=== PATIENT | female | born 1940 | race Caucasian/White ===

== ENCOUNTER 2016-08-11 22:04 | Inpatient (IN) | payer MEDICARE, OTHER ==
--- NOTE | ~2016-08-11 | DS ---
Discharge Summary [facility] [address] [facility]. [address] NAME: YE STEINBERG : 42 STATUS : DIS IN PAT#: [id number] AGE: 76 ADM/REG DATE : 08/11/16 MR#: [id number] REPORT SERV DATE: 08/18/16 DICTATED BY: YOUSIF WILCOX DATE: 08/17/16 REPORT STATUS : Draft TRANSCRIBED BY: MODL DATE: 08/17/16 ADMISSION DATE: 08/11/2016 DISCHARGE DATE: 08/17/2016 FINAL DIAGNOSES: 1. Morganella morganii urinary tract infection. 2. Left flank pain, likely muscular. 3. Chronic abdominal pain with irritable bowel, diarrhea-type. 4. Emphysema, chronic obstructive pulmonary disease. 5. Hypertension. 6. History of lung carcinoma with right lower lung lobectomy. 7. History of breast cancer with right mastectomy. DIAGNOSTIC EXAMS: CT kidney stone protocol showing both kidneys are of normal size and configuration, 2 mm nonobstructing left lower pole kidney stone. The patient does not have ureteral stones, bladder stones, or hydronephrosis. No bowel obstruction or bowel wall inflammation. There is some retained stool throughout the colon. Chest x-ray showing no acute cardiopulmonary abnormality. HOSPITAL COURSE: Please refer to the H and P done by Dr. Bautista, dated on 08/11/2016. Briefly, this is a 76-year-old female who was transferred from [facility] for antibiotic resistant UTI. The patient has a history of hypertension, chronic pain, and chronic narcotics. She started having some back and left flank pain and nausea. The patient went to [facility], was diagnosed with UTI, and was prescribed an unknown oral antibiotic. She did not fill it as it is so expensive, and she started having increasing nausea and vomiting. The patient went back to the emergency room as she was contacted because the cultures done on a previous day showed a resistant Morganella morganii. The patient was seen again. They got a white count of 9.[address] showed nonobstructing nephrolithiasis. Lactic acids are normal. The patient was then transferred here where she was given the initial diagnosis of left pyelonephritis; however, the patient never had a fever since she got here. We continued the aztreonam basing from the cultures from [place], and we did our own culture here, and the urinalysis is unremarkable, and the cultures are negative. We did our kidney stone protocol here and it was similar to the previous one without any hydronephrosis or obstructing stone. Meanwhile, the patient continues to complain of this back pain. On physical exam, it seems to be more of muscular. With the CAT scan findings, no fever, clearing urine, no positive cultures, and a white count that only peaked at 11.5 once and everything is normal, I highly doubt that this is a pyelonephritis. The patient most likely has a UTI which is already treated and having this chronic pain, and she is already on narcotics. I added some Flexeril on her, and we will discharge the patient today. The patient was told about this, and she agreed with the plan. She will be following up with the PCP, Iftikhar Macedo. DISCHARGE MEDICATIONS: She will be on the following medications: Flonase 1 spray both nostrils, Singulair 10 mg a day, Prilosec 40 mg a day, Desyrel 50 mg at bedtime, Roxicodone 15 mg four times a day p.r.n., and I will give her a prescription for Flexeril 5 mg p.o. t.i.d. Discharge Summary [address] [address] NAME: YE STEINBERG : 42 STATUS : DIS IN PAT#: [id number] AGE: 76 ADM/REG DATE : 08/11/16 MR#: [id number] REPORT SERV DATE: 08/18/16 DICTATED BY: YOUSIF WILCOX. DATE: 08/17/16 REPORT STATUS : Draft TRANSCRIBED BY: YOON DATE: 08/17/16 This has been explained to her. TIME SPENT: 35 minutes. SEBASTIEN/YOON Yousif Wilcox M.D. / [id number] CC: Iftikhar Macedo M.D.
--- NOTE | ~2016-08-11 | HP ---
History And Physical [place] [address] [facility] [place]. [address] NAME: YE STEINBERG : 42 STATUS : ADM Florencio PAT#: [id number] AGE: 76 ADM/REG DATE : 08/11/16 MR#: [id number] REPORT SERV DATE: 08/12/16 DICTATED BY: TALI ESCALONA DATE: 08/12/16 REPORT STATUS : Draft TRANSCRIBED BY: MODL DATE: 08/12/16 DATE OF ADMISSION: 08/11/2016 POINT OF ENTRY: Transfer from [facility] Emergency Department. PRIMARY CARE PHYSICIAN: Dr. Iftikhar Macedo. CHIEF COMPLAINT: Antibiotic-resistant urinary tract infection. HISTORY OF PRESENT ILLNESS: Ms. Steinberg is a 76-year-old female with a history of hypertension, asthma, osteoarthritis as well as lung and breast cancer who is being transferred from [facility] Emergency Department for antibiotic-resistant urinary tract infection. The patient states that she first started to develop some left flank and back pain as well as nausea on Saturday evening. She was seen at [facility] Emergency Department on Saturday and diagnosed urinary tract infection and prescribed an unknown oral antibiotic. The patient states that she tried to fill at the pharmacy, but it was so expensive she did not fill it. She states that she has subsequently developed worsening nausea, vomiting as well as persistent left flank and back pain. Also endorses some fevers as high as 102 degrees Fahrenheit at home today. The patient was contacted by the staff at [facility] today as the urine culture resulted as Morganella morganii that was resistant to multiple antibiotics. Initial evaluation today at [facility] notable for white count of 9.2. Remainder of her labs were unremarkable. She was complaining of severe abdominal pain, therefore CT of the abdomen and pelvis was undertaken, which showed a small hiatal hernia as well as left sided nonobstructing nephrolithiasis. Lactic acid within normal limits. She was very hypertensive, which was treated with some IV Cardizem as well as pain control. She was subsequently transferred to [facility] for higher level of care. She denies any night sweats, chills, chest pain, palpitations, shortness of breath, diarrhea, constipation, melena, hematochezia, or hemoptysis. She denies any dysuria, but does endorse some urinary odor as well as frequency. COMPREHENSIVE REVIEW OF SYSTEMS: Otherwise negative unless listed in history of present illness now. PREVIOUS MEDICAL HISTORY: 1. History of lung cancer, status post right upper lobe lobectomy. 2. Breast cancer, status post right mastectomy. 3. Hypertension. 4. Asthma. 5. Osteoarthritis. 6. Gastroesophageal reflux disease. History And Physical [address] [address] NAME: YE STEINBERG : 42 STATUS : ADM Florencio PAT#: [id number] AGE: 76 ADM/REG DATE : 08/11/16 MR#: [id number] REPORT SERV DATE: 08/12/16 DICTATED BY: TALI ESCALONA DATE: 08/12/16 REPORT STATUS : Draft TRANSCRIBED BY: YOON DATE: 08/12/16 SURGICAL HISTORY: 1. Right mastectomy. 2. Right upper lobe lobectomy. 3. Bilateral TKA. 4. Cervical diskectomy. 5. Abdominal hysterectomy. 6. Cataract surgery. ALLERGIES: THESE ARE YET TO BE CONFIRMED BY PHARMACY, BUT IN OUR SYSTEM INCLUDE STADOL, TORADOL, IMITREX, IV CONTRAST, NSAIDS, PENICILLINS, MORPHINE, CODEINE, ASPIRIN, ACETAMINOPHEN, TRAMADOL, AND LATEX. HOME MEDICATIONS: Pending at time dictation. SOCIAL HISTORY: Denies any tobacco, alcohol, or illicits. FAMILY MEDICAL HISTORY: Mother with asthma and leukemia. Father with coronary artery disease. Siblings with history of coronary artery disease. LABS AND IMAGING: All obtained from transfer records from [facility]. 1. White count 9.2, hemoglobin 14.4, hematocrit 42.7, and platelet count is 261. 2. Sodium is 138, potassium 3.6, chloride 101, carbon dioxide 26, BUN 10, creatinine 0.8, glucose is 106, calcium is 10.0, protein 7.4, albumin 4.4, bilirubin 0.4, ALT is 10, AST 14, alkaline phosphatase is 87. 3. Lactic acid 1.4. 4. CT scan of abdomen and pelvis shows a small hiatal hernia as well as nonobstructing left-sided nephrolithiasis. 5. Urine culture from 08/06/2016 shows Morganella morganii that is currently sensitive to gentamicin, tobramycin, ceftazidime, Zosyn, and Azactam. PHYSICAL EXAMINATION: VITAL SIGNS: Temperature is 97.5 degrees Fahrenheit, pulse is 104 respirations 16, saturating 94% on room air, blood pressure 193/95. GENERAL: The patient is awake, alert, in some mild discomfort from her left-sided back and flank pain. She is an elderly, female.. HEENT: Atraumatic, normocephalic. Slightly dry mucous membranes. Pupils were equal, round, reactive to light and accommodation. Extraocular eye movements were intact. No scleral icterus. CARDIAC: Regular rate and rhythm. No murmurs or gallops. Normal S1, S2. LUNGS: Clear to auscultation bilaterally. No wheezes, rhonchi, or crackles. ABDOMEN: Soft. She is somewhat tender to palpation over the left upper and lower quadrant. No rebound, guarding, or rigidity. : She does have some left-sided flank and CVA tenderness on palpation. EXTREMITIES: Warm and perfused. No cyanosis, clubbing, or edema. SKIN: Warm and dry. PSYCH: Affect appropriate. History And Physical [address] [address] NAME: YE STEINBERG : 42 STATUS : ADM Florencio PAT#: [id number] AGE: 76 ADM/REG DATE : 08/11/16 MR#: [id number] REPORT SERV DATE: 08/12/16 DICTATED BY: TALI ESCALONA DATE: 08/12/16 REPORT STATUS : Draft TRANSCRIBED BY: MODKelvin DATE: 08/12/16 NEURO: Alert, oriented x3. Cranial nerves II through XII grossly intact. Speech is normal. Gait not assessed. ASSESSMENT AND PLAN: Ms. Steinberg is a 76-year-old female with a recent diagnosis of antibiotic-resistant urinary tract infection. PROBLEM LIST: 1. Morganella morganii urinary tract infection. 2. Hypertension. 3. Abdominal pain. 4. Left-sided nephrolithiasis. PLAN: 1. Morganella morganii urinary tract infection. We will place the patient on IV Azactam. 2. Hypertension. Continue patient's home medications once confirmed. IV hydralazine p.r.n. for elevated blood pressure. Suspect a lot of this is due to pain, which we will address separately. 3. Abdominal pain. Suspect this is all due to nephrolithiasis as this is located in the left side as well as some flank and CVA tenderness. Otherwise, labs and CT imaging were unremarkable. We will treat with IV fluids as well as some pain control. Continue to monitor. 4. Nephrolithiasis. Treat with IV fluids as well as pain control. Unfortunately, she is allergic to Toradol. 5. DVT prophylaxis. Lovenox subcutaneously. CODE STATUS: The patient wished to be full code. BRIANA/YOON Tali Escalona MD / [id number] CC: Iftikhar Macedo M.D.
[~2016-08-11 22:04] MED LIST: CAT1 PO; CAT2 PO; K500 PO; LOMOTILUDL PO; LONOX2.5 MG PO; LOTE40 PO; NEXIUM40 PO; NORCO1 TAB PO; P20 PO; PHEN50TAB PO; PREV15 PO; PRILOSEC40 MG PO; PROTONIX PO; ROXICODONE15 MG PO; SYMBICORT 160/41 INH INH; VALIUM10 MG PO; VENTOLIN HFA INH
[2016-08-11] MEDS ORDERED: ROXICODONE15 MG PO (23:06)
[2016-08-11] MEDS ORDERED: MACROBID PO (23:07)
[2016-08-11] MEDS ORDERED: TRAZ50 PO (23:08)
[2016-08-11] MEDS ORDERED: FLONASE NAS (23:08)
[2016-08-11] MEDS ORDERED: SINGULAIR1 PO (23:08)
[2016-08-11] MEDS ORDERED: LOM PO (23:10)
[2016-08-11] MEDS ORDERED: PRILOSEC40 MG PO (23:11)
[2016-08-12 09:32] LABS: BASOPHILS 0.3 %; BASOPHILS ABSOLUTE 0.04 10/3/uL (0.0-0.16); EOSINOPHILS 0.6 %; EOSINOPHILS ABSOLUTE 0.07 10/3/uL (0.0-0.53); HEMATOCRIT 42.8 % (36.0-48.0); HEMOGLOBIN 14.3 g/dL (12.0-16.0); IMMATURE GRANULOCYTES 0.2 %; IMMATURE GRANULOCYTES ABSOLUTE 0.02 10/3/uL (0.0-0.11); LYMPHOCYTES 22.8 %; LYMPHOCYTES ABSOLUTE 2.63 10/3/uL (0.67-4.30); MEAN CORPUS HGB CONC 33.4 g/dL (32.0-36.0); MEAN CORPUSCULAR HEMOGLOB 31.5 pg (26.0-34.0); MEAN CORPUSCULAR VOLUME 94.3 fL (80-100); MEAN PLATELET VOLUME 9.4 fL (9.2-13.0); MONOCYTES 6.3 %; MONOCYTES ABSOLUTE 0.72 10/3/uL (0.21-1.20); NEUTROPHILS 69.8 %; NEUTROPHILS ABSOLUTE 8.04 10/3/uL (2.02-8.40); PLATELET COUNT 288 10/3/uL (150-400); RBC DISTRIBUTION WIDTH 13.3 % (12.0-16.0); RED CELL COUNT 4.54 10/6/uL (4.0-5.6); WHITE BLOOD CELLS 11.5 10/3/uL (4.5-10.5)
[2016-08-12 09:33] LABS: MANUAL DIFF NO %
[2016-08-12 09:44] LABS: BUN (BLOOD UREA NITROGEN) 9 MG/DL (6-23); CHLORIDE, SERUM 105 MMOL/L (96-112); CO2 (CARBON DIOXIDE) 25 MMOL/L (24-34); CREATININE 0.73 MG/DL (0.55-1.02); GFR AFRICAN AMERICAN 93 ML/MIN (>=60); GFR NON AFRICAN AMERICAN 81 ML/MIN (>=60); GLUCOSE, SERUM 95 MG/DL (60-99); POTASSIUM, SERUM 3.5 MMOL/L (3.5-5.3); SODIUM, SERUM 142 MMOL/L (135-148)
[2016-08-13 08:48] LABS: BUN (BLOOD UREA NITROGEN) 12 MG/DL (6-23); CALCIUM, SERUM 9.1 MG/DL (8.5-10.4); CHLORIDE, SERUM 104 MMOL/L (96-112); CO2 (CARBON DIOXIDE) 29 MMOL/L (24-34); CREATININE 0.78 MG/DL (0.55-1.02); GFR AFRICAN AMERICAN 86 ML/MIN (>=60); GFR NON AFRICAN AMERICAN 74 ML/MIN (>=60); GLUCOSE, SERUM 94 MG/DL (60-99); SODIUM, SERUM 139 MMOL/L (135-148)
[2016-08-13 08:49] LABS: POTASSIUM, SERUM 4.3 MMOL/L (3.5-5.3)
[2016-08-13 09:02] LABS: BASOPHILS 0.4 %; BASOPHILS ABSOLUTE 0.03 10/3/uL (0.0-0.16); EOSINOPHILS 1.6 %; EOSINOPHILS ABSOLUTE 0.12 10/3/uL (0.0-0.53); HEMOGLOBIN 12.5 g/dL (12.0-16.0); IMMATURE GRANULOCYTES 0.3 %; IMMATURE GRANULOCYTES ABSOLUTE 0.02 10/3/uL (0.0-0.11); LYMPHOCYTES 28.8 %; LYMPHOCYTES ABSOLUTE 2.18 10/3/uL (0.67-4.30); MEAN CORPUS HGB CONC 32.8 g/dL (32.0-36.0); MEAN CORPUSCULAR HEMOGLOB 31.3 pg (26.0-34.0); MEAN CORPUSCULAR VOLUME 95.3 fL (80-100); MEAN PLATELET VOLUME 9.1 fL (9.2-13.0); MONOCYTES 9.4 %; MONOCYTES ABSOLUTE 0.71 10/3/uL (0.21-1.20); NEUTROPHILS 59.5 %; PLATELET COUNT 222 10/3/uL (150-400); WHITE BLOOD CELLS 7.6 10/3/uL (4.5-10.5)
[2016-08-13 09:04] LABS: HEMATOCRIT 38.1 % (36.0-48.0); MANUAL DIFF NO %
[2016-08-13 09:19] LABS: PROCALCITONIN <0.05 ng/mL (<0.5)
[2016-08-14 04:37] LABS: BASOPHILS 0.6 %; BASOPHILS ABSOLUTE 0.04 10/3/uL (0.0-0.16); EOSINOPHILS 4.4 %; HEMATOCRIT 36.9 % (36.0-48.0); HEMOGLOBIN 11.8 g/dL (12.0-16.0); IMMATURE GRANULOCYTES 0.3 %; IMMATURE GRANULOCYTES ABSOLUTE 0.02 10/3/uL (0.0-0.11); LYMPHOCYTES 36.1 %; LYMPHOCYTES ABSOLUTE 2.49 10/3/uL (0.67-4.30); MANUAL DIFF NO %; MEAN CORPUSCULAR VOLUME 96.9 fL (80-100); MEAN PLATELET VOLUME 9.9 fL (9.2-13.0); MONOCYTES 15.1 %; MONOCYTES ABSOLUTE 1.04 10/3/uL (0.21-1.20); NEUTROPHILS 43.5 %; PLATELET COUNT 149 10/3/uL (150-400); RBC DISTRIBUTION WIDTH 13.1 % (12.0-16.0); RED CELL COUNT 3.81 10/6/uL (4.0-5.6); WHITE BLOOD CELLS 6.9 10/3/uL (4.5-10.5)
[2016-08-14 04:54] LABS: BUN (BLOOD UREA NITROGEN) 15 MG/DL (6-23); CALCIUM, SERUM 8.7 MG/DL (8.5-10.4); CHLORIDE, SERUM 107 MMOL/L (96-112); CO2 (CARBON DIOXIDE) 25 MMOL/L (24-34); CREATININE 0.89 MG/DL (0.55-1.02); GFR AFRICAN AMERICAN 73 ML/MIN (>=60); GFR NON AFRICAN AMERICAN 63 ML/MIN (>=60); GLUCOSE, SERUM 122 MG/DL (60-99); SODIUM, SERUM 140 MMOL/L (135-148)
[2016-08-14 12:41] LABS: TOTAL BILIRUBIN 0.2 MG/DL (0-1.2); TOTAL PROTEIN 6.3 G/DL (6.0-8.5)
[2016-08-14 12:42] LABS: ALBUMIN 2.9 G/DL (3.5-5.0); DIRECT BILIRUBIN 0.1 MG/DL (0.0-0.4); INDIRECT BILIRUBIN(NOT ORDER) 0.1 MG/DL (0.1-0.9)
[2016-08-14 12:47] LABS: ASCORBIC ACID (UR NOT ORDER) NEG (NEG); BILIRUBIN, URINE NEGATIVE (NEG); KETONE, URINE NEGATIVE (NEG); LEUKOCYTE ESTERASE(NOT OR SMALL (NEG); WBC (NOT ORDERED) (RFLEX) 8 (0-5)
[2016-08-15 05:57] LABS: BASOPHILS 0.6 %; BASOPHILS ABSOLUTE 0.05 10/3/uL (0.0-0.16); EOSINOPHILS 3.9 %; EOSINOPHILS ABSOLUTE 0.31 10/3/uL (0.0-0.53); HEMATOCRIT 36.6 % (36.0-48.0); IMMATURE GRANULOCYTES 0.3 %; IMMATURE GRANULOCYTES ABSOLUTE 0.02 10/3/uL (0.0-0.11); LYMPHOCYTES 26.3 %; LYMPHOCYTES ABSOLUTE 2.07 10/3/uL (0.67-4.30); MEAN CORPUS HGB CONC 32.8 g/dL (32.0-36.0); MEAN CORPUSCULAR HEMOGLOB 31.7 pg (26.0-34.0); MEAN CORPUSCULAR VOLUME 96.6 fL (80-100); MONOCYTES 13.9 %; MONOCYTES ABSOLUTE 1.09 10/3/uL (0.21-1.20); NEUTROPHILS ABSOLUTE 4.33 10/3/uL (2.02-8.40); PLATELET COUNT 189 10/3/uL (150-400); RBC DISTRIBUTION WIDTH 12.9 % (12.0-16.0); RED CELL COUNT 3.79 10/6/uL (4.0-5.6); WHITE BLOOD CELLS 7.9 10/3/uL (4.5-10.5)
[2016-08-15 06:00] LABS: MANUAL DIFF NO %
[2016-08-17] MEDS ORDERED: FLEXERIL5 MG PO (10:15)
== END 2016-08-17 13:45 | disposition home or self-care (01) | DRG 690 ==
LOC: 2SO 22:04
PROVIDERS: Hospitalist; Internal Medicine
DX: N39.0 Urinary tract infection, site not specified (principal); J44.9 Chronic obstructive pulmonary disease, unspecified; B96.89 Other specified bacterial agents as the cause of diseases classified elsewhere; N20.0 Calculus of kidney; I10 Essential (primary) hypertension; J45.909 Unspecified asthma, uncomplicated; M19.90 Unspecified osteoarthritis, unspecified site; K44.9 Diaphragmatic hernia without obstruction or gangrene; K21.9 Gastro-esophageal reflux disease without esophagitis; Z96.653 Presence of artificial knee joint, bilateral; K58.0 Irritable bowel syndrome with diarrhea; Z85.118 Personal history of other malignant neoplasm of bronchus and lung; Z85.3 Personal history of malignant neoplasm of breast; Z85.89 Personal history of malignant neoplasm of other organs and systems; Z90.2 Acquired absence of lung [part of]; Z90.11 Acquired absence of right breast and nipple; Z98.890 Other specified postprocedural states; Z82.5 Family history of asthma and other chronic lower respiratory diseases; Z80.6 Family history of leukemia; Z82.49 Family history of ischemic heart disease and other diseases of the circulatory system; Z16.35 Resistance to multiple antimicrobial drugs; M79.1 Myalgia
CPT/HCPCS: 71010; 74176; 80048; 80076; 81001; 82150; 83735; 84145; 84443; 85025; 87086; 93005; 94640; A9270-GY; J0360; J1170; J2405; J3480

== ENCOUNTER 2016-08-25 04:51 | Inpatient (IN) | payer MEDICARE ==
--- NOTE | ~2016-08-25 | HP ---
History And Physical [address] [place]. [address] NAME: YE STEINBERG : 42 STATUS : ADM Florencio PAT#: [id number] AGE: 76 ADM/REG DATE : 08/25/16 MR#: [id number] REPORT SERV DATE: 08/25/16 DICTATED BY: TALI ESCALONA DATE: 08/25/16 REPORT STATUS : Draft TRANSCRIBED BY: MODKelvin DATE: 08/25/16 DATE OF ADMISSION: 08/25/2016 POINT OF ENTRY: Transferred from [facility] Emergency Department. PRIMARY CARE PHYSICIAN: Dr. Iftikhar Macedo. CHIEF COMPLAINT: Neck pain and stiffness. HISTORY OF PRESENT ILLNESS: Ms. Steinberg is a 76-year-old female with a history of hypertension, breast cancer, lung cancer, as well as chronic pain on chronic narcotics, who presented to [facility] Emergency Department this evening with a report of a three-day history of severe neck pain and stiffness. The patient was admitted to the Hospitalist Service approximately 2 weeks ago for a multi- drug resistant Morganella morganii urinary tract infection requiring multiple days of IV Azactam for treatment. The patient was discharged on 08/17/2016, in good health and feeling well. Shortly after discharge, the patient states she developed severe neck pain and stiffness. The pain is located both left and right as well as posterior midline. The patient states that she did have a few days of fevers as high as 100 degrees Fahrenheit on Saturday and Saturday. She denies any headaches, vision changes, confusion, or changes in level of consciousness. Initial evaluation at [facility] emergency Department shows white count of 16,600. Urinalysis unfortunately is consistent with recurrent or persistent urinary tract infection. CT scan of the C-spine showed no acute changes but did show chronic multilevel degenerative changes as well as anterolisthesis of C7 on T1. She was given IV fluids and multiple rounds of pain medications as well as some Valium and then transferred to [facility] for higher level of care. COMPREHENSIVE REVIEW OF SYSTEMS: Otherwise negative unless listed in the history of present illness. PREVIOUS MEDICAL HISTORY: 1. Chronic pain on chronic narcotics. 2. Gastroesophageal reflux disease. 3. Asthma. 4. Osteoarthritis and degenerative disk disease. 5. Hypertension. 6. Breast cancer, status post right mastectomy. 7. Lung cancer, status post right upper lobe lobectomy. 8. Recent history of antibiotic resistant Morganella morganii UTI. SURGICAL HISTORY: History And Physical [address] [address] NAME: YE STEINBERG : 42 STATUS : ADM Florencio PAT#: [id number] AGE: 76 ADM/REG DATE : 08/25/16 MR#: [id number] REPORT SERV DATE: 08/25/16 DICTATED BY: TALI ESCALONA DATE: 08/25/16 REPORT STATUS : Draft TRANSCRIBED BY: MODKelvin DATE: 08/25/16 1. Right mastectomy. 2. Right upper lobe lobectomy. 3. Bilateral total knee. 4. Cervical diskectomy. 5. Abdominal hysterectomy. 6. Cataract surgery. ALLERGIES: MULTIPLE. THESE ARE ALSO YET TO BE CONFIRMED BY PHARMACY. HOME MEDICATIONS: Pending at the time of dictation. SOCIAL HISTORY: Denies any tobacco, alcohol, or illicits. FAMILY MEDICAL HISTORY: Mother with asthma and leukemia. Father with coronary artery disease. Siblings with coronary artery disease. LABS AND IMAGING: All obtained from transfer records from [facility]. 1. White count is 16.6, hemoglobin 13.7, hematocrit is 41.0, and platelet count 395. 2. Sodium is 136, potassium 3.3, chloride 97, carbon dioxide 24, BUN 9, creatinine 0.7, glucose is 116, calcium is 9.6, protein 7.7, albumin 3.9, bilirubin is 0.6, ALT is 10, AST 10, and alkaline phosphatase is 70. 3. Strep swab was negative. 4. Urinalysis specific gravity was 1.015, positive ketones, small leukocyte esterase, negative nitrites, 18 white blood cells per high-powered field. 5. ESR 42. 6. Lactic acid 0.8. 7. CT scan of the C-spine shows no acute changes, shows chronic multilevel degenerative changes as well as anterolisthesis. PHYSICAL EXAMINATION: VITAL SIGNS: Temperature is 97.2 degrees Fahrenheit, pulse is 97, respirations 14, saturating 92% on room air, and blood pressure 158/74. GENERAL: The patient is awake, alert, in no acute distress. Resting comfortably in bed. She is a chronically ill-appearing elderly female, currently moaning in pain. HEENT: Atraumatic and normocephalic. Moist mucous membranes. Pupils equal, round, and reactive to light and accommodation. Extraocular eye movements intact. No scleral icterus. NECK: No jugular venous distention. No carotid bruits. There is pain on palpation of the bilateral sternocleidomastoid muscles, the cervical spinous processes as well as paraspinal musculature. There is some amount of neck stiffness but the patient is able to rotate and flex and extend her neck under considerable pain. CARDIAC: Regular rate and rhythm. No murmurs or gallops. Normal S1, S2. LUNGS: Clear to auscultation bilaterally. No wheezes, rhonchi, or rales. ABDOMEN: Soft, nontender, nondistended. Good bowel sounds. No rebound, guarding, or rigidity. EXTREMITIES: Warm, perfused. No cyanosis, clubbing, or edema. SKIN: Warm and dry. PSYCHIATRIC: Affect appropriate. NEUROLOGIC: Alert and oriented x3. Cranial nerves 2 through 12 grossly intact. Speech is History And Physical [address] [address] NAME: YE STEINBERG : 42 STATUS : ADM Florencio PAT#: [id number] AGE: 76 ADM/REG DATE : 08/25/16 MR#: [id number] REPORT SERV DATE: 08/25/16 DICTATED BY: TALI ESCALONA DATE: 08/25/16 REPORT STATUS : Draft TRANSCRIBED BY: MODKelvin DATE: 08/25/16 normal. Gait not assessed. ASSESSMENT AND PLAN: Ms. Steinberg is a 76-year-old female, who presents with a three-day history of neck pain and stiffness as well as reported fevers and found to have a urinary tract infection as well as leukocytosis at [facility]. PROBLEM LIST: 1. Neck pain and stiffness. 2. Leukocytosis. 3. Recurrent urinary tract infection. PLAN: 1. Neck pain and stiffness. I suspect this is all due to cervical disc disease, however given reports of fevers as well as neck pain and stiffness as well as in the setting of a leukocytosis, I think one must be prudent to rule out meningitis. We will place her on empiric treatment with ceftazidime and vancomycin and ampicillin while we await lumbar puncture and its results. Should that be negative and if she continued to have uncontrolled pain, MRI of the cervical spine may be necessary. 2. Leukocytosis, likely secondary to diagnosed urinary tract infection but working up other ID etiologies. We will check a chest x-ray. Follow up the blood cultures as well as checking procalcitonin level and results of lumbar puncture. 3. Urinary tract infection. Again she has a history of antibiotic resistant Morganella morganii. The ceftazidime will cover for Morganella morganii while we await for the followup urine cultures from [facility]. 4. Chronic pain on chronic narcotics. The patient is in pain management and is currently requesting repeated doses of narcotics for her pain. We will continue the patient's home medications once confirmed with some IV Dilaudid p.r.n. for breakthrough. 5. DVT prophylaxis. Lovenox subcu. CODE STATUS: The patient wished to be full code. JCB/MODL Tali Escalona MD / [id number] CC: Kaley Dickinson M.D.
--- NOTE | ~2016-08-25 | DS ---
Discharge Summary [facility] [address] [place]. [address] NAME: YE STEINBERG : 42 STATUS : DIS IN PAT#: [id number] AGE: 76 ADM/REG DATE : 08/25/16 MR#: [id number] REPORT SERV DATE: 09/04/16 DICTATED BY: ANGEL ORTIZ DATE: 09/03/16 REPORT STATUS : Draft TRANSCRIBED BY: MODL DATE: 09/03/16 ADMISSION DATE: 08/25/2016 DISCHARGE DATE: 09/03/2016 DISCHARGE DIAGNOSES: Include: 1. Acute on chronic cervical pain with degenerative disk disease. 2. Radiculopathy and myelopathy. 3. Osteoarthritis. 4. Left internal jugular thrombus, acute. 5. Hypertension. 6. Chronic pain syndrome and opioid-induced constipation. 7. Questionable temporomandibular joint. 8. History of lung cancer and breast cancer. 9. Chronic home O2 usage. DISCHARGE MEDICINES: 1. Benazepril 40 mg daily. 2. Valium 5 mg daily. 3. Flexeril 5 mg three times a day p.r.n. 4. Magnesium oxide 400 mg daily. 5. Movantik 25 mg daily. 6. Prilosec 40 mg daily. 7. Potassium chloride 40 mEq daily. 8. Xarelto 50 mg twice a day for 11 more days, then to 20 mg daily thereafter for a total of three months. 9. Oxycodone 15 mg four times a day p.r.n. for breakthrough pain. 10.Percocet 7.5/325 one tablet every four hours p.r.n. for pain, using first. 11.Prednisone in a tapering prescription of 30 mg daily for three days, then 20 mg daily for three days, then 10 mg daily for three days, and then discontinue. 12.Zofran 4 mg every four hours p.r.n. for nausea. 13.Trazodone 50 mg at bedtime. 14.Flonase nasal spray p.r.n. 15.Singulair 10 mg daily. 16.Lomotil 2.5 mg four times a day p.r.n. for diarrhea. HISTORY OF PRESENT ILLNESS: A 76-year-old female, who presented with neck pain and stiffness. Please see initial H and P of Dr. Chapincito Bautista. The patient was initially transferred from [facility] Department. CONSULTS DURING THIS ADMISSION: Include Ortho Spine, Dr. Michi Almanzar. PROCEDURES AND IMAGING DURING THIS ADMISSION: Included a venous Doppler ultrasound of the upper extremity showing a thrombus of the left internal jugular vein. MRI of the cervical spine showing spondylitic change, encroachment into the left neural foramen of C3 and C4. No evidence of any postoperative infection and remaining levels are unremarkable, some suggested mild sphenoid sinusitis. Initial CT scan of the brain upon admission showing no Discharge Summary [address] [place]. [address] NAME: YE STEINBERG : 42 STATUS : DIS IN PAT#: [id number] AGE: 76 ADM/REG DATE : 08/25/16 MR#: [id number] REPORT SERV DATE: 09/04/16 DICTATED BY: ANGEL ORTIZ DATE: 09/03/16 REPORT STATUS : Draft TRANSCRIBED BY: MODL DATE: 09/03/16 acute intracranial abnormality. HOSPITAL COURSE: The patient was initially seen by Dr. Ld Tanner, hospitalist, beginning on 08/25/2016, where she was given adjustments in her pain medicine, narcotic regimen to help with her worsening neck pain. She also had some abdominal pain and actually was seen by GI during this admission, but thought to be in no need for any procedures and/or further testing at this time for chronic constipation and when she was started on Linzess and Movantik, her ability to have a bowel movement improved. She was seen by Dr. Michi Almanzar as stated after the MRI was obtained, and he did not recommend any further surgical interventions at this time. She did have a finding of the left IJ thrombus and was started on anticoagulation initially with Eliquis, however, her insurance preferred Xarelto, so she was switched to Xarelto and will be discharging on that. Physical Therapy saw the patient and recommended outpatient rehab. She was worked up in choice for [facility]. She was also given some prednisone during this admission. Opiate pain medicines and Valium which slowly improved her overall pain each day, and she has been able to ambulate in the room with assistance and has been able to get up to chair with assistance. She was felt safe for discharge to [facility] on 09/03/2016 with the above medication regimen. Questions were answered at bedside extensively. She is in agreement with this plan going forward. Please note, greater than 30 minutes was spent on this discharge for medication teaching, followup planning, and further disposition. MALIKA/MODL Angel Ortiz NP / [id number] CC: Kaley Oakley M.D.
--- NOTE | ~2016-08-25 | CN ---
Consultation Report [facility] [address] [place]. [address] NAME: YE STEINBERG : 42 STATUS : ADM IN PAT#: [id number] AGE: 76 ADM/REG DATE : 08/25/16 MR#: [id number] REPORT SERV DATE: 08/29/16 DICTATED BY: MICHI KIRK DATE: 08/29/16 REPORT STATUS : Draft TRANSCRIBED BY: MODL DATE: 08/29/16 CONSULTATION DATE OF CONSULTATION: CHIEF COMPLAINT: Neck pain. HISTORY OF PRESENT ILLNESS: This is a 76-year-old female from the [facility] who has been admitted for neck pain. The patient was transferred from local facility in the [facility] after going through the ER visit complaining of neck pain. The pain radiates to the left shoulder, but does not radiate into the left arm or hand. There were no complaints of weakness other than generalized or overall weakness. The patient has a long history of both neck and low back pain and sees Dr. Adama Peterson at [facility] for chronic pain management. The patient has no history of trauma. She has had some fevers a couple of days ago, but no longer has any fevers. Has had no chills or night sweats. She has had a history of a previous lung cancer. She has also had a recent admission for UTI. She currently does have a sed rate, which is elevated at 42. The patient has only been seen in our office on a very limited basis long time ago, but I have been asked to see with regard to the current complaints. The past medical history, surgical history, current medications, allergies, social history, family history taken from the chart as indicated. PHYSICAL EXAMINATION: GENERAL: She is alert and cooperative. She had a cervical collar in place. She followed directions appropriately. HEENT: She was normocephalic. Pupils are equal and reactive to light. Extraocular muscles are intact. EXTREMITIES: The upper extremities reveal no neurologic deficit. Her motor strengths are 5/5. Her reflexes are symmetrical. Yolette sign is negative. There is no dermatomal sensory deficit. Tinel's sign at the elbow and wrist negative for any evidence of peripheral entrapment. The patient does have limited range of motion of the neck. She has a negative compression test and negative Spurling's sign. Negative Lhermitte's sign. No imaging studies are available. There has been no recent C-spine x-rays or MRI. Supposedly, she had a CT scan done while at the outside facility, but I do not have any images to review. ASSESSMENT: Acute on chronic neck pain without radiculopathy or myelopathy. RECOMMENDATIONS: Since there has been some prior history of a carcinoma that could have Consultation Report [place] [address] [facility] [id number] NAME: YE STEINBERG : 42 STATUS : ADM IN [facility]#: [id number] AGE: 76 ADM/REG DATE : 08/25/16 MR#: [id number] REPORT SERV DATE: 08/29/16 DICTATED BY: MICHI KIRK DATE: 08/29/16 REPORT STATUS : Draft TRANSCRIBED BY: YOON DATE: 08/29/16 distal metastasis and because there has been a prior history of recent infection that could also result in a hematogenous spread of the infection, I will order x-rays and MRI of the neck. If there is no evidence of tumor or infection, the patient will not be a candidate for any kind of surgical management. The chronic disk degeneration spondylosis and even stenosis is not going to be an indication for surgery in her case. The patient is with her history particularly on chronic narcotics, simply not a candidate for surgery due to pain only. I will review the images. If the images did not show any tumor or infection, then the patient can be discharged as desired by the hospitalist. JESUS/YOON Michi Kirk D.O. / [id number] CC: Kaley Alfred M.D.
[~2016-08-25 04:51] MED LIST changes: +FLEXERIL5 MG PO; +FLONASE NAS; +LOM PO; +MACROBID PO; +SINGULAIR1 PO; +TRAZ50 PO
[2016-08-25 08:08] LABS: CREATININE 0.63 MG/DL (0.55-1.02)
[2016-08-25 09:08] LABS: PROCALCITONIN 0.29 ng/mL (<0.5)
[2016-08-25 11:47] LABS: TOTAL PROTEIN, CSF 77.8 MG/DL (15-45)
[2016-08-25 12:00] LABS: CSF COLOR (NOT ORD) COLORLESS (COLORLESS); CSF XANTHROCHROMIA NEG (NEG)
[2016-08-25 12:01] LABS: CSF APPEARANCE (NOT ORD) CLEAR (CLEAR); CSF WBC (NOT ORD) 18 /uL (0-10)
[2016-08-25 12:02] LABS: CSF RBC (NOT ORD) 618 MM3 (NO REFERENCE)
[2016-08-25 12:04] LABS: CSF BASO 0 % (NO REF RANGE); CSF EOS 0 % (0-1); CSF LYMPH (NOT ORD) 81 % (28-96); CSF MONO 12 % (16-56); CSF SEGS (NOT ORD) 7 % (0-7)
[2016-08-26 05:13] LABS: BASOPHILS 0.3 %; BASOPHILS ABSOLUTE 0.04 10/3/uL (0.0-0.16); EOSINOPHILS 1.6 %; HEMATOCRIT 33.6 % (36.0-48.0); HEMOGLOBIN 11.2 g/dL (12.0-16.0); IMMATURE GRANULOCYTES 0.7 %; IMMATURE GRANULOCYTES ABSOLUTE 0.08 10/3/uL (0.0-0.11); LYMPHOCYTES 19.8 %; LYMPHOCYTES ABSOLUTE 2.43 10/3/uL (0.67-4.30); MEAN CORPUS HGB CONC 33.3 g/dL (32.0-36.0); MEAN CORPUSCULAR HEMOGLOB 31.5 pg (26.0-34.0); MEAN CORPUSCULAR VOLUME 94.4 fL (80-100); MEAN PLATELET VOLUME 8.9 fL (9.2-13.0); MONOCYTES 16.9 %; MONOCYTES ABSOLUTE 2.08 10/3/uL (0.21-1.20); NEUTROPHILS 60.7 %; NEUTROPHILS ABSOLUTE 7.45 10/3/uL (2.02-8.40); RBC DISTRIBUTION WIDTH 12.9 % (12.0-16.0); RED CELL COUNT 3.56 10/6/uL (4.0-5.6)
[2016-08-26 05:14] LABS: PLATELET COUNT 330 10/3/uL (150-400); WHITE BLOOD CELLS 12.3 10/3/uL (4.5-10.5)
[2016-08-26 05:15] LABS: MANUAL DIFF NO %
[2016-08-26 05:28] LABS: A/G RATIO 0.6 (0.7-1.9); ALBUMIN 2.4 G/DL (3.5-5.0); CALCIUM, SERUM 8.3 MG/DL (8.5-10.4); CHLORIDE, SERUM 108 MMOL/L (96-112); CO2 (CARBON DIOXIDE) 29 MMOL/L (24-34); CREATININE 0.63 MG/DL (0.55-1.02); GFR AFRICAN AMERICAN 102 ML/MIN (>=60); GFR NON AFRICAN AMERICAN 88 ML/MIN (>=60); GLOBULIN 3.7 G/DL (2.5-4.1); GLUCOSE, SERUM 122 MG/DL (60-99); POTASSIUM, SERUM 3.5 MMOL/L (3.5-5.3); SGOT(AST) 10 U/L (5-40); SGPT(ALT) 16 U/L (5-65); SODIUM, SERUM 141 MMOL/L (135-148); TOTAL BILIRUBIN 0.2 MG/DL (0-1.2); TOTAL PROTEIN 6.1 G/DL (6.0-8.5)
[2016-08-26 05:34] LABS: ALKALINE PHOSPHATASE 76 U/L (45-117); BUN (BLOOD UREA NITROGEN) 7 MG/DL (6-23)
[2016-08-27 05:31] LABS: BASOPHILS 0.4 %; BASOPHILS ABSOLUTE 0.03 10/3/uL (0.0-0.16); EOSINOPHILS 4.3 %; EOSINOPHILS ABSOLUTE 0.36 10/3/uL (0.0-0.53); HEMATOCRIT 30.8 % (36.0-48.0); IMMATURE GRANULOCYTES 0.4 %; IMMATURE GRANULOCYTES ABSOLUTE 0.03 10/3/uL (0.0-0.11); LYMPHOCYTES 18.6 %; LYMPHOCYTES ABSOLUTE 1.54 10/3/uL (0.67-4.30); MANUAL DIFF NO %; MEAN CORPUS HGB CONC 32.5 g/dL (32.0-36.0); MEAN CORPUSCULAR HEMOGLOB 30.6 pg (26.0-34.0); MEAN CORPUSCULAR VOLUME 94.2 fL (80-100); MEAN PLATELET VOLUME 8.8 fL (9.2-13.0); MONOCYTES 13.9 %; MONOCYTES ABSOLUTE 1.15 10/3/uL (0.21-1.20); NEUTROPHILS 62.4 %; NEUTROPHILS ABSOLUTE 5.19 10/3/uL (2.02-8.40); PLATELET COUNT 298 10/3/uL (150-400); RBC DISTRIBUTION WIDTH 13.3 % (12.0-16.0); RED CELL COUNT 3.27 10/6/uL (4.0-5.6); WHITE BLOOD CELLS 8.3 10/3/uL (4.5-10.5)
[2016-08-28 04:54] LABS: BASOPHILS 0.6 %; BASOPHILS ABSOLUTE 0.05 10/3/uL (0.0-0.16); EOSINOPHILS 4.1 %; EOSINOPHILS ABSOLUTE 0.36 10/3/uL (0.0-0.53); HEMATOCRIT 32.4 % (36.0-48.0); HEMOGLOBIN 10.6 g/dL (12.0-16.0); IMMATURE GRANULOCYTES 0.5 %; IMMATURE GRANULOCYTES ABSOLUTE 0.04 10/3/uL (0.0-0.11); LYMPHOCYTES 21.2 %; LYMPHOCYTES ABSOLUTE 1.87 10/3/uL (0.67-4.30); MEAN CORPUS HGB CONC 32.7 g/dL (32.0-36.0); MEAN CORPUSCULAR HEMOGLOB 31.1 pg (26.0-34.0); MEAN PLATELET VOLUME 8.6 fL (9.2-13.0); MONOCYTES 12.6 %; MONOCYTES ABSOLUTE 1.11 10/3/uL (0.21-1.20); NEUTROPHILS ABSOLUTE 5.39 10/3/uL (2.02-8.40); PLATELET COUNT 380 10/3/uL (150-400); RED CELL COUNT 3.41 10/6/uL (4.0-5.6); WHITE BLOOD CELLS 8.8 10/3/uL (4.5-10.5)
[2016-08-28 04:55] LABS: MANUAL DIFF NO %
[2016-08-28 05:00] LABS: BUN (BLOOD UREA NITROGEN) 4 MG/DL (6-23); CALCIUM, SERUM 8.7 MG/DL (8.5-10.4); CHLORIDE, SERUM 105 MMOL/L (96-112); CO2 (CARBON DIOXIDE) 33 MMOL/L (24-34); CREATININE 0.68 MG/DL (0.55-1.02); GFR AFRICAN AMERICAN 99 ML/MIN (>=60); GFR NON AFRICAN AMERICAN 86 ML/MIN (>=60); GLUCOSE, SERUM 104 MG/DL (60-99); POTASSIUM, SERUM 3.8 MMOL/L (3.5-5.3); SODIUM, SERUM 143 MMOL/L (135-148)
[2016-08-29 06:16] LABS: A/G RATIO 0.7 (0.7-1.9); ALBUMIN 2.5 G/DL (3.5-5.0); ALKALINE PHOSPHATASE 84 U/L (45-117); BUN (BLOOD UREA NITROGEN) 4 MG/DL (6-23); CALCIUM, SERUM 9.8 MG/DL (8.5-10.4); CHLORIDE, SERUM 107 MMOL/L (96-112); CO2 (CARBON DIOXIDE) 32 MMOL/L (24-34); CREATININE 0.75 MG/DL (0.55-1.02); GFR AFRICAN AMERICAN 90 ML/MIN (>=60); GFR NON AFRICAN AMERICAN 78 ML/MIN (>=60); GLOBULIN 3.8 G/DL (2.5-4.1); GLUCOSE, SERUM 114 MG/DL (60-99); POTASSIUM, SERUM 4.2 MMOL/L (3.5-5.3); SGOT(AST) 11 U/L (5-40); SGPT(ALT) 19 U/L (5-65); SODIUM, SERUM 144 MMOL/L (135-148); TOTAL BILIRUBIN 0.2 MG/DL (0-1.2); TOTAL PROTEIN 6.3 G/DL (6.0-8.5)
[2016-08-31 06:35] LABS: BASOPHILS 0.1 %; BASOPHILS ABSOLUTE 0.01 10/3/uL (0.0-0.16); EOSINOPHILS 0 %; HEMATOCRIT 34.3 % (36.0-48.0); HEMOGLOBIN 11.2 g/dL (12.0-16.0); IMMATURE GRANULOCYTES 0.4 %; IMMATURE GRANULOCYTES ABSOLUTE 0.03 10/3/uL (0.0-0.11); LYMPHOCYTES 16.3 %; MEAN CORPUS HGB CONC 32.7 g/dL (32.0-36.0); MEAN CORPUSCULAR HEMOGLOB 30.7 pg (26.0-34.0); MEAN PLATELET VOLUME 8.3 fL (9.2-13.0); MONOCYTES 7.5 %; MONOCYTES ABSOLUTE 0.51 10/3/uL (0.21-1.20); NEUTROPHILS 75.7 %; NEUTROPHILS ABSOLUTE 5.11 10/3/uL (2.02-8.40); PLATELET COUNT 383 10/3/uL (150-400); RBC DISTRIBUTION WIDTH 13.2 % (12.0-16.0); RED CELL COUNT 3.65 10/6/uL (4.0-5.6); WHITE BLOOD CELLS 6.8 10/3/uL (4.5-10.5)
[2016-08-31 06:38] LABS: MANUAL DIFF NO %
[2016-08-31 06:50] LABS: BUN (BLOOD UREA NITROGEN) 6 MG/DL (6-23); C-REACTIVE PROTEIN 14.7 MG/L (<8.0); CALCIUM, SERUM 10.1 MG/DL (8.5-10.4); CHLORIDE, SERUM 100 MMOL/L (96-112); CO2 (CARBON DIOXIDE) 34 MMOL/L (24-34); CREATININE 0.74 MG/DL (0.55-1.02); GFR AFRICAN AMERICAN 92 ML/MIN (>=60); GFR NON AFRICAN AMERICAN 79 ML/MIN (>=60); GLUCOSE, SERUM 157 MG/DL (60-99); POTASSIUM, SERUM 4.7 MMOL/L (3.5-5.3); SODIUM, SERUM 140 MMOL/L (135-148)
[2016-08-31 07:55] LABS: SED RATE 45 MM/HR (0-20)
[2016-08-31 08:00] LABS: PROCALCITONIN <0.05 ng/mL (<0.5)
[2016-09-01 15:13] LABS: ASCORBIC ACID (UR NOT ORDER) NEG (NEG); BILIRUBIN, URINE NEGATIVE (NEG); KETONE, URINE NEGATIVE (NEG); LEUKOCYTE ESTERASE(NOT OR NEG (NEG); WBC (NOT ORDERED) (RFLEX) 1 (0-5)
== END 2016-09-03 20:38 | DRG 552 ==
LOC: 6NO 04:51
PROVIDERS: Hospitalist; Internal Medicine; Nurse Practitioner Family; Radiology Diagnostic Radiology
PROC: 009U3ZX Drainage of Spinal Canal, Percutaneous Approach, Diagnostic (ICD-10-PCS; principal; 2016-08-25)
PROC: B01B1ZZ Fluoroscopy of Spinal Cord using Low Osmolar Contrast (ICD-10-PCS; 2016-08-25)
PROC: 02HV33Z Insertion of Infusion Device into Superior Vena Cava, Percutaneous Approach (ICD-10-PCS; 2016-08-25)
PROC: 4A02X4A Measurement of Cardiac Electrical Activity, Guidance, External Approach (ICD-10-PCS; 2016-08-25)
DX: M50.00 Cervical disc disorder with myelopathy, unspecified cervical region (principal); I82.C12 Acute embolism and thrombosis of left internal jugular vein; N39.0 Urinary tract infection, site not specified; G89.4 Chronic pain syndrome; M19.90 Unspecified osteoarthritis, unspecified site; K59.03 Drug induced constipation; T40.2X5A Adverse effect of other opioids, initial encounter; I10 Essential (primary) hypertension; K21.9 Gastro-esophageal reflux disease without esophagitis; K44.9 Diaphragmatic hernia without obstruction or gangrene; J45.909 Unspecified asthma, uncomplicated; J02.9 Acute pharyngitis, unspecified; K58.1 Irritable bowel syndrome with constipation; G43.909 Migraine, unspecified, not intractable, without status migrainosus; Z85.118 Personal history of other malignant neoplasm of bronchus and lung; Z79.891 Long term (current) use of opiate analgesic; Z85.3 Personal history of malignant neoplasm of breast; Z99.81 Dependence on supplemental oxygen; Z90.11 Acquired absence of right breast and nipple; Z90.2 Acquired absence of lung [part of]; Z87.440 Personal history of urinary (tract) infections
CPT/HCPCS: 36569; 62270; 70450; 71010; 72040; 72141; 76700; 77003; 80048; 80053; 81001; 82565; 82945; 83690; 83735; 84145; 84157; 85025; 85652; 86140; 87040; 87070; 87205; 87493; 87493-59; 87880; 89051; 93971; 97110-GO; 97162-GP; 97165-GO; 97530-GP; 97535-GO; A9270-GY; C1751; C9113; G8978-CK-GP; G8979-CJ-GP; G8987-CK-GO; G8988-CJ-GO; J0360; J0692; J0713; J1170; J2405; J3360; J3370